=== PATIENT | female | born 1990 | race American Indian/Alaskan Native ===

== ENCOUNTER 2018-11-18 14:36 | Emergency (ER) | payer MEDICAID, OTHER ==
--- NOTE | 2018-11-18 14:46 | Emergency Department Report ---
Blank Doc - Documentation Documentation: This is a 28-year-old sore throat and cough with body aches. Agrees to fever and chills. PAtient stated is . Denies any vaginal bleeding or abdominal pain. This initial assessment/diagnostic orders/clinical plan/treatment(s) is/are subject to change based on patient's health status, clinical progression and re- assessment by fellow clinical providers in the ED. Further treatment and workup at subsequent clinical providers discretion. Patient/guardians urged not to elope from the ED as their condition may be serious if not clinically assessed and managed. Initial orders include: 1- Patient sent to MAIN ED for further evaluation and treatment 2- strep swab 3- Tylenol
[2018-11-18] MEDS ORDERED: TYLENOL PO ONE (14:49)
--- NOTE | 2018-11-18 17:27 | Emergency Department Report ---
Minor Respiratory - HPI Chief Complaint: Sore Throat Stated Complaint: FLU LIKE SYM/THROAT PAIN Time Seen by Provider: 11/18/18 14:42 Duration: 1 week Pain Location: Throat Severity: moderate Minor Respiratory: Yes Rhinorrhea, Yes Sore Throat, Yes Able to Tolerate Fluids, Yes Cough, Yes Sick Contacts (nephew), Yes Fever, No Ear Pain, No Hemoptysis, No Chest Pain, No Shortness of Breath Other History: This is a 28 y.o. female that presents with flu-like symptoms x 1 week. Patient reports a positive home test. She is currently taking OTC cold and flu medication. Reports sore throat, myalgia, and cough. Denies chest pain, shortness of breath, nausea, vomiting, diarrhea, abdominal pain, vaginal bleeding, or back pain. ED Review of Systems ROS: Stated complaint: FLU LIKE SYM/THROAT PAIN Other details as noted in HPI Constitutional: chills, fever ENT: throat pain, congestion. denies: ear pain, dental pain, hearing loss, epistaxis Respiratory: cough. denies: shortness of breath, wheezing Cardiovascular: denies: chest pain, palpitations Gastrointestinal: denies: abdominal pain, nausea, diarrhea Musculoskeletal: myalgia. denies: back pain, joint swelling, arthralgia Skin: denies: rash, lesions Neurological: denies: headache, weakness, paresthesias Psychiatric: denies: anxiety, depression ED Past Medical Hx - Past Medical History Hx Asthma: Yes - Surgical History Additional Surgical History: hernia repair - Social History Smoking Status: Never Smoker Substance Use Type: None - Medications Home Medications: Home Medications Medication Instructions Recorded Confirmed Last Taken Type HYDROcodone/APAP 10-325 [[place] 1 each PO Q6HR PRN #20 tablet 03/18/14 Unknown Rx 10/325] Ibuprofen [Motrin] 600 mg PO Q8H PRN #60 tablet 08/08/15 Unknown Rx Sulfamethoxazole/Trimethoprim 1 each PO BID #14 tablet 08/08/15 Unknown Rx [Bactrim DS TAB] traMADol [Ultram] 50 mg PO Q6HR PRN #14 tablet 08/08/15 Unknown Rx Amoxicillin 500 mg PO BID #14 capsule 11/18/18 Unknown Rx Fluticasone [Flonase] 1 spray NS QDAY #1 bottle 11/18/18 Unknown Rx Minor Respiratory Exam - Exam General: Vital signs noted. No distress. Alert and acting appropriately. HEENT: Yes Pharyngeal Erythema (posterior pharynx), Yes Moist Mucous Membranes, Yes Rhinorrhea (turbinates mildly congested with clear discharge), No Pharyngeal Exudates, No Conjuctival Injection, No Frontal Tenderness, No Maxillary Tenderness Ear: Neither TM Bulge, Neither TM Erythema, Neither EAC Pain, Neither EAC Discharge Neck: Yes Supple, No Adenopathy Lungs: Yes Good Air Exchange, Yes Cough, No Wheezes, No Ronchi, No Stridor, No Labored Respirations, No Retractions, No Use of Accessory Muscles, No Other Abnormal Lung Sounds Heart: Yes Regular, No Murmur Abdomen: Yes Normal Bowel Sounds, No Tenderness, No Peritoneal Signs Skin: No Rash, No Edema Neurologic: Alert and oriented, no deficits. Musculoskeletal: Unremarkable. ED Course Vital Signs 11/18/18 11/18/18 14:37 14:44 Temperature 100.7 F H Pulse Rate 116 H 109 H Respiratory 18 20 Rate Blood Pressure 116/72 Blood Pressure 116/72 [Left] O2 Sat by Pulse 97 95 Oximetry Vital Signs 11/18/18 11/18/18 11/18/18 14:37 14:44 17:34 Temperature 100.7 F H 99.0 F Pulse Rate 116 H 109 H 92 H Respiratory 18 20 16 Rate Blood Pressure 116/72 Blood Pressure 116/72 105/67 [Left] O2 Sat by Pulse 97 95 96 Oximetry ED Medical Decision Making - Lab Data Lab Results 11/18/18 Range/Units Unknown Group A Strep Rapid Negative (Negative) - Medical Decision Making 28 y.o. female that presents with flu-like symptoms. Patient is but denies abdominal pain, vaginal bleeding, or vaginal discharge. Patient examined by me and stable. No distress noted. Temperature and heart rate elevated. Given analgesics while in ER. Blood pressure and heart rated normal on reevaluation. Educated on care for bronchitis. Start flonase and amoxicillin. Instructed to stop taking cold and flu medication during . She is instructed to take Tylenol for aches and pains, to drink a lot of liquids to stay home and rest. She was given a note to return to work in 3 days. Follow up with Primary Care Provider or [facility] in 2-3 days. She will return to the emergency room if she does not get better as discussed. Critical care attestation.: If time is entered above; I have spent that time in minutes in the direct care of this critically ill patient, excluding procedure time. ED Disposition Clinical Impression: Sore throat, Bronchitis Disposition: DC- TO HOME OR SELFCARE Is pt being admited?: No Does the pt Need Aspirin: No Condition: Stable Instructions: Acute Bronchitis (ED), Chronic Bronchitis (ED) Additional Instructions: Symptoms are most likely coming from your infection. She is to take tylenol every 6 hours for pain and temperature control. You may not feel like eating which is to be expected. Try eating a bland diet as tolerated. Wash hands frequently. F/U with Primary Care Provider. Return to ER if fever, SOB, or difficulty breathing after 48 hours of supportive care. Prescriptions: Amoxicillin 500 mg PO BID #14 capsule Fluticasone [Flonase] 1 spray NS QDAY #1 bottle Referrals: [facility]OR[facility] ABDOUL [Primary Care Provider] - 3-5 Days [facility] [Outside] - 3-5 Days [facility] [Provider Group] - 3-5 Days [facility] [Provider Group] - 3-5 Days Forms: Work/School Release Form(ED) Time of Disposition: 17:30
[2018-11-18 17:35] VITALS: BP 105/67
== END 2018-11-18 17:38 | disposition home or self-care (01) ==
LOC: ED 14:36
DX: O99.519 Diseases of the respiratory system complicating pregnancy, unspecified trimester (principal); J40 Bronchitis, not specified as acute or chronic; Z3A.00 Weeks of gestation of pregnancy not specified
CPT/HCPCS: 87116; 87430

== ENCOUNTER 2018-12-04 00:31 | Emergency (ER) | payer MEDICAID, OTHER ==
[2018-12-04 01:04] VITALS: BP 123/82
[2018-12-04 01:44] LABS: Basophils % (Auto) 0.4 % (0.0-1.8); Eosinophils # (Auto) 0.1 K/mm3 (0.0-0.4); Eosinophils % (Auto) 0.8 % (0.0-4.3); Hemoglobin 11.9 gm/dl (10.1-14.3); Lymphocytes # (Auto) 1.7 K/mm3 (1.2-5.4); Lymphocytes % (Auto) 23.5 % (13.4-35.0); Mean Corpuscular HGB Conc 33 % (30-34); Mean Corpuscular Volume 83 fl (79-97); Monocytes # (Auto) 0.4 K/mm3 (0.0-0.8); Monocytes % (Auto) 5.4 % (0.0-7.3); Platelet Count 377 K/mm3 (140-440); Red Blood Count 4.37 M/mm3 (3.65-5.03); Red Cell Distribution Width 14.8 % (13.2-15.2)
[2018-12-04 01:55] LABS: HCG Qualitative,Urine Positive (Negative)
[2018-12-04 01:58] LABS: Bilirubin,Urine NEG (Negative); Blood,Urine NEG (Negative); Color,Urine Yellow (Yellow); Mucus,Urine FEW /HPF; Protein,Urine <15 mg/dL mg/dL (Negative)
[2018-12-04 02:08] LABS: Alanine Aminotransferase 21 units/L (7-56); Albumin 4.4 g/dL (3.9-5); BUN/Creatinine Ratio 17; Blood Urea Nitrogen 10 mg/dL (7-17); Calcium 9.6 mg/dL (8.4-10.2); Hemolysis Index 0
[2018-12-04] MEDS ORDERED: XYLOCAINE 1% MPF 5 mL INFILTRATI ONE (04:08)
[2018-12-04] MEDS ORDERED: XYLOCAINE 1% MPF 5 mL ONE (04:11)
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
== END 2018-12-04 06:59 | disposition home or self-care (01) ==
LOC: ED 00:31
DX: O20.0 Threatened abortion (principal); O9A.211 Injury, poisoning and certain other consequences of external causes complicating pregnancy, first trimester; S61.306A Unspecified open wound of right little finger with damage to nail, initial encounter; O99.511 Diseases of the respiratory system complicating pregnancy, first trimester; J45.909 Unspecified asthma, uncomplicated; O99.331 Smoking (tobacco) complicating pregnancy, first trimester; F17.200 Nicotine dependence, unspecified, uncomplicated; Z3A.09 9 weeks gestation of pregnancy; Y04.8XXA Assault by other bodily force, initial encounter; Y93.89 Activity, other specified; Y92.009 Unspecified place in unspecified non-institutional (private) residence as the place of occurrence of the external cause; Y99.8 Other external cause status
CPT/HCPCS: 36415; 76801; 80053; 81001; 81025; 84702; 84703; 85025

== ENCOUNTER 2018-12-21 22:36 | Emergency (ER) | payer MEDICAID, OTHER | END 2018-12-22 04:45 | LOC: ED 22:36 | DX: O26.891 Other specified pregnancy related conditions, first trimester (principal); Z53.21 Procedure and treatment not carried out due to patient leaving prior to being seen by health care provider ==

== ENCOUNTER 2018-12-22 10:01 | Emergency (ER) | payer MEDICAID ==
[2018-12-22 10:20] VITALS: BP 117/74
[2018-12-22 10:36] LABS: Hematocrit 35.4 % (30.3-42.9); Hemoglobin 11.7 gm/dl (10.1-14.3); Mean Corpuscular HGB Conc 33 % (30-34); Mean Corpuscular Volume 83 fl (79-97); Platelet Count 274 K/mm3 (140-440); Red Blood Count 4.26 M/mm3 (3.65-5.03)
--- NOTE | 2018-12-22 10:59 | Emergency Department Report ---
ED Abdominal Pain HPI - General Chief Complaint: Sore Throat Stated Complaint: 12WKS /BLEEDING/ABD PAIN Time Seen by Provider: 12/22/18 10:45 Source: patient Mode of arrival: Ambulatory Limitations: No Limitations - History of Present Illness Initial Comments: 28 YO WITH VAG BLEEDING IN PREG HERE ONCE PRIOR FOR THIS HAS ALSO SEEN OB X 1 G1 VAG BLEED WITH CRAMPS LMP 09/24/18 [facility] ASTHMA RX PRN ALBUTEROL -: Sudden, days(s) Location: diffuse Severity scale (0 -10): 4 Quality: cramping Consistency: intermittent - Related Data Previous Rx's Medication Instructions Recorded Last Taken Type traMADol [Ultram] 50 mg PO Q6HR PRN #12 tablet 12/22/18 Unknown Rx Allergies Allergy/AdvReac Type Severity Reaction Status Date / Time No Known Allergies Allergy Verified 12/22/18 15:12 ED Review of Systems ROS: Stated complaint: 12WKS /BLEEDING/ABD PAIN Other details as noted in HPI Comment: All other systems reviewed and negative Genitourinary: as per HPI ED Past Medical Hx - Past Medical History Hx Asthma: Yes - Surgical History Additional Surgical History: hernia repair - Family History Family history: no significant - Social History Smoking Status: Never Smoker Substance Use Type: None - Medications Home Medications: Home Medications Medication Instructions Recorded Confirmed Last Taken Type traMADol [Ultram] 50 mg PO Q6HR PRN #12 tablet 12/22/18 Unknown Rx ED Physical Exam - General Limitations: No Limitations General appearance: alert - Head Head exam: Present: atraumatic - Eye Eye exam: Present: normal appearance - ENT ENT exam: Present: normal exam, mucous membranes moist - Neck Neck exam: Present: normal inspection - Respiratory Respiratory exam: Present: normal lung sounds bilaterally - Cardiovascular Cardiovascular Exam: Present: regular rate - GI/Abdominal GI/Abdominal exam: Present: soft, normal bowel sounds - Rectal Rectal exam: Present: deferred - Extremities Exam Extremities exam: Present: normal inspection - Back Exam Back exam: Present: normal inspection, full ROM - Neurological Exam Neurological exam: Present: alert, oriented X3 - Psychiatric Psychiatric exam: Present: normal affect, normal mood ED Course Vital Signs 12/22/18 12/22/18 12/22/18 10:19 12:38 12:41 Temperature 98.3 F Pulse Rate 72 Respiratory 16 17 17 Rate Blood Pressure 117/74 O2 Sat by Pulse 100 Oximetry 12/22/18 13:00 Temperature Pulse Rate 67 Respiratory 18 Rate Blood Pressure O2 Sat by Pulse 97 Oximetry ED Medical Decision Making - Lab Data Result diagrams: 12/22/18 10:22 - Radiology Data Radiology results: report reviewed, image reviewed - Medical Decision Making Lab Results 12/22/18 12/22/18 12/22/18 Range/Units 10:22 10:22 10:22 WBC 5.7 (4.5-11.0) K/mm3 RBC 4.26 (3.65-5.03) M/mm3 Hgb 11.7 (10.1-14.3) gm/dl Hct 35.4 (30.3-42.9) % MCV 83 (79-97) fl MCH 27 L (28-32) pg MCHC 33 (30-34) % RDW 15.0 (13.2-15.2) % Plt Count 274 (140-440) K/mm3 HCG, Quant 3570 H (0-4) mIU/mL Blood Type B POSITIVE Vital Signs 12/22/18 10:19 Temperature 98.3 F Pulse Rate 72 Respiratory 16 Rate Blood Pressure 117/74 O2 Sat by Pulse 100 Oximetry RH POS US NOTED MEDICATED FOR PAIN DC HOME WITH FOLLOW UP WITHIN 24 TO OBGYN Critical care attestation.: If time is entered above; I have spent that time in minutes in the direct care of this critically ill patient, excluding procedure time. ED Disposition Clinical Impression: Threatened , Spontaneous Disposition: DC-01 TO HOME OR SELFCARE Is pt being admited?: No Does the pt Need Aspirin: No Condition: Stable Instructions: Spontaneous Miscarriage (ED), Threatened Miscarriage (ED) Additional Instructions: FOLLOW UP WITH OB WITHIN 24 HOURS THEY CAN CALL HERE AND GET ULTRASOUND REPORT PELVIC REST MOTRIN OR TYLENOL FOR PAIN Prescriptions: traMADol [Ultram] 50 mg PO Q6HR PRN #12 tablet PRN Reason: Pain Referrals: ABBEY WILEY MD [Primary Care Provider] - 3-5 Days CARMEN BAZZI MD [Staff Physician] - 3-5 Days Time of Disposition: 12:30
--- NOTE | 2018-12-22 12:22 | Ultrasound Report ---
ULTRASOUND PELVIC COMPLETE ULTRASOUND TRANSVAGINAL HISTORY: Vaginal bleeding during . COMPARISON: 12/04/18. TECHNIQUE: Transabdominal and transvaginal ultrasound with color doppler interrogation. FINDINGS: Uterus: 10.6 6.0 x 6.6 cm. The uterus is anteverted. The cervix is unremarkable. Endometrium: An intrauterine gestational sac is identified containing a small pole. Avenal-rump length measures 20.2 mm which correlates with an 8 week 4 day . No heart rate could be detected. Right ovary: 4.4 x 1.7 x 2.5 cm. Left ovary: 2.6 x 1.4 x 1.9 cm. No pelvic fluid or mass is identified. Normal color doppler interrogation. IMPRESSION: Findings remain consistent with demise. See above. Normal ovaries.
[2018-12-22] MEDS ORDERED: NORCO 5/325 PO ONE (12:31)
[2018-12-22] MEDS ORDERED: TYLENOL PO ONE (12:38)
[2018-12-22] MEDS ORDERED: TYLENOL ONE (12:39)
== END 2018-12-22 12:59 | disposition home or self-care (01) ==
LOC: ED 10:01
DX: O20.0 Threatened abortion (principal); J45.909 Unspecified asthma, uncomplicated; Z3A.12 12 weeks gestation of pregnancy
CPT/HCPCS: 36415; 76801; 84702; 85027; 86900; 86901

== ENCOUNTER 2018-12-22 15:09 | Emergency (ER) | payer MEDICAID ==
[2018-12-22 15:14] VITALS: BP 124/85
--- NOTE | 2018-12-22 15:54 | Emergency Department Report ---
ED Recheck HPI - General Chief Complaint: Vaginal Bleeding Stated Complaint: STOMACH PAIN/12WKS Time Seen by Provider: 12/22/18 15:16 Source: patient Mode of arrival: Wheelchair Limitations: No Limitations - History of Present Illness Initial Comments: 28 YO WHO WAS JUST DC WENT HOME, GOT UPSET, COMPLAINED OF PAIN AND SHE COMES IN WITH HER FAMILY NOW. SHE DID NOT TELL THE FAMILY SHE WAS HAVING MISCARRIAGE. SHE TOLD THEM THE BABY WAS OK. PT EMOTIONALLY TRAUMATIZED. SHE IS 28 AND THIS IS HER FIRST . COMES NOW WITH PAIN. SHE DID NOT HAVE A RIDE EARLIER SO WE DID NOT MEDICATED HER. SHE DROVE TO AND FROM THE HOSPITAL Complaint: other - Related Data Previous Rx's Medication Instructions Recorded Last Taken Type traMADol [Ultram] 50 mg PO Q6HR PRN #12 tablet 12/22/18 Unknown Rx Allergies Allergy/AdvReac Type Severity Reaction Status Date / Time No Known Allergies Allergy Verified 12/22/18 15:12 ED Review of Systems ROS: Stated complaint: STOMACH PAIN/12WKS Other details as noted in HPI Comment: All other systems reviewed and negative ED Past Medical Hx - Past Medical History Hx Asthma: Yes - Surgical History Additional Surgical History: hernia repair - Social History Smoking Status: Never Smoker Substance Use Type: None - Medications Home Medications: Home Medications Medication Instructions Recorded Confirmed Last Taken Type traMADol [Ultram] 50 mg PO Q6HR PRN #12 tablet 12/22/18 Unknown Rx ED Physical Exam - General Limitations: No Limitations General appearance: alert - Head Head exam: Present: atraumatic - Eye Eye exam: Present: PERRL - ENT ENT exam: Present: mucous membranes moist - Cardiovascular Cardiovascular Exam: Present: regular rate, normal rhythm (HR90 CRYING) - GI/Abdominal GI/Abdominal exam: Present: soft - Rectal Rectal exam: Present: deferred - Extremities Exam Extremities exam: Present: normal inspection - Back Exam Back exam: Present: normal inspection - Neurological Exam Neurological exam: Present: alert, oriented X3 - Psychiatric Psychiatric exam: Present: anxious ED Course Vital Signs 12/22/18 15:12 Temperature 98.5 F Pulse Rate 103 H Respiratory 18 Rate Blood Pressure 124/85 O2 Sat by Pulse 100 Oximetry ED Recheck MDM - Core Measures Measure Exclusions: not indicated - Medical Decision Making RH POS HCG TRENDING DOWN VAG BLEEDING WITH CLOTS US NOTED WITH DEMISE EARLIER TODAY WILL FOLLOW UP WITH JLUIS. DISCUSSED WITH FAMILY SO THAT THEY CAN HELP HER WITH THIS. Vital Signs (72 hours) 12/22/18 15:12 Temperature 98.5 F Pulse Rate 103 H Respiratory 18 Rate Blood Pressure 124/85 O2 Sat by Pulse 100 Oximetry Critical care attestation.: If time is entered above; I have spent that time in minutes in the direct care of this critically ill patient, excluding procedure time. ED Disposition Clinical Impression: Threatened , Spontaneous Disposition: - TO HOME OR SELFCARE Is pt being admited?: No Does the pt Need Aspirin: No Condition: Stable Instructions: Spontaneous Miscarriage (ED) Additional Instructions: FOLLOW UP WE DISCUSSED GET YOUR RX FILLED AND TAKE THAT AND MOTRIN/TYLENOL FOR PAIN BLOOD TYPE POSITIVE Referrals: CARMEN BAZZI MD [Staff Physician] - 3-5 Days Time of Disposition: 15:57
[2018-12-22] MEDS ORDERED: DILAUDID IM ONE (15:55)
[2018-12-22] MEDS ORDERED: ZOFRAN ODT PO ONE (15:55)
[2018-12-22] MEDS ORDERED: ATIVAN IM ONE (15:56)
== END 2018-12-22 16:59 | disposition home or self-care (01) ==
LOC: ED 15:09
DX: O20.0 Threatened abortion (principal); Z3A.12 12 weeks gestation of pregnancy; O99.511 Diseases of the respiratory system complicating pregnancy, first trimester
CPT/HCPCS: 96372; 99282; J1170; J2060; Q0162

== ENCOUNTER 2019-09-10 08:00 | Emergency (ER) | payer SELFPAY ==
[2019-09-10] MEDS ORDERED: ACETAMINOPHEN 500 MG TAB PO ONE (08:24)
[2019-09-10] MEDS ORDERED: IPRATROPIUM 0.02% NEBU 2.5 ML IH ONE (08:24)
[2019-09-10] MEDS ORDERED: ALBUTEROL 2.5 MG/3 ML NEBU IH ONE (08:24)
--- NOTE | 2019-09-10 09:25 | XRay Report ---
. CHEST 1 VIEW INDICATION: SOB. COMPARISON: None. FINDINGS: Support devices: None. Heart: Normal. Lungs/Pleura: No acute pulmonary or pleural findings. IMPRESSION: 1. No acute findings. Signer Name: Gil Singh MD Signed: 09/10/2019 9:21 AM Workstation Name: [id number]
[2019-09-10] MEDS ORDERED: PYRIDOXINE 50 MG TAB PO STA (10:39)
[2019-09-10] MEDS ORDERED: SODIUM CHLORIDE 0.9% 1000 ML 1,000 ML IV ONE (10:39)
[2019-09-10] MEDS ORDERED: diphenhydrAMINE 50 MG/ML VIAL IV STA (10:39)
[2019-09-10] MEDS ORDERED: METOCLOPRAMIDE 10 MG/2 ML INJ IV STA (10:39)
[2019-09-10 10:54] LABS: Bilirubin,Urine NEG (Negative); Blood,Urine NEG (Negative); Color,Urine Yellow (Yellow); Mucus,Urine FEW /HPF; Protein,Urine <15 mg/dL mg/dL (Negative); Urobilinogen,Urine < 2.0 mg/dL (<2.0)
[2019-09-10 11:56] LABS: Hematocrit 32.6 % (30.3-42.9); Hemoglobin 10.9 gm/dl (10.1-14.3); Mean Corpuscular Volume 84 fl (79-97); Red Blood Count 3.89 M/mm3 (3.65-5.03)
[2019-09-10 11:57] LABS: Mean Corpuscular HGB Conc 33 % (30-34); Platelet Count 239 K/mm3 (140-440); Red Cell Distribution Width 14.9 % (13.2-15.2)
[2019-09-10 12:19] LABS: Alanine Aminotransferase 14 units/L (7-56); Albumin 4.1 g/dL (3.9-5); BUN/Creatinine Ratio 15; Blood Urea Nitrogen 6 mg/dL (7-17); Hemolysis Index 4
[2019-09-10 12:39] LABS: Basophils % (Manual) 0 % (0.0-1.8); Eosinophils % (Manual) 0 % (0.0-4.3); Total Cells Counted 100
[2019-09-10 12:40] LABS: Platelet Estimate Consistent w Auto; RBC Morphology Normal
[2019-09-10 13:40] VITALS: BP 116/69
--- NOTE | 2019-09-10 14:56 | Emergency Department Report ---
- General Chief Complaint: Adult Asthma Stated Complaint: SOB Time Seen by Provider: 09/10/19 10:33 Source: patient, family, EMS Mode of arrival: Stretcher Limitations: No Limitations - Related Data Previous Rx's Medication Instructions Recorded Last Taken Type traMADoL [Ultram] 50 mg PO Q6HR PRN #12 tablet 12/22/18 Unknown Rx Allergies Allergy/AdvReac Type Severity Reaction Status Date / Time No Known Allergies Allergy Verified 12/22/18 15:12 ED Review of Systems ROS: Stated complaint: SOB Other details as noted in HPI ED Past Medical Hx - Past Medical History Hx Asthma: Yes - Surgical History Additional Surgical History: hernia repair - Social History Smoking Status: Current Every Day Smoker Substance Use Type: None - Medications Home Medications: Home Medications Medication Instructions Recorded Confirmed Last Taken Type traMADoL [Ultram] 50 mg PO Q6HR PRN #12 tablet 12/22/18 Unknown Rx ED Physical Exam - General Limitations: No Limitations ED Course Vital Signs 09/10/19 09/10/19 09/10/19 08:17 11:15 13:39 Temperature 100.1 F H 98.9 F 99.1 F Pulse Rate 105 H 84 88 Respiratory 19 22 20 Rate Blood Pressure 129/78 Blood Pressure 109/52 116/69 [Left] O2 Sat by Pulse 97 98 100 Oximetry ED Medical Decision Making - Lab Data Result diagrams: 09/10/19 11:44 09/10/19 11:44 Critical care attestation.: If time is entered above; I have spent that time in minutes in the direct care of this critically ill patient, excluding procedure time. ED Disposition Disposition: DC-01 TO HOME OR SELFCARE Condition: Stable Instructions: Reactive Airways Disease (ED), Cold Symptoms (ED), Acute Cough (ED) Additional Instructions: Chest x-ray was normally influenza swab was negative. Symptoms are consistent with a viral upper respiratory infection and hyperactive airways. Follow with her CHEMISTRY PROFESSOR for definitive management at this present time no treatment involving Tamiflu or antibiotics is required. He may benefit from steroids and antihistamines of this needs to be prescribed by your OB Referrals: [facility] [Provider Group] - 3-5 Days
== END 2019-09-10 14:52 | disposition home or self-care (01) ==
LOC: ED 08:00
DX: R06.02 Shortness of breath (principal); J45.909 Unspecified asthma, uncomplicated; F17.200 Nicotine dependence, unspecified, uncomplicated; Z79.899 Other long term (current) drug therapy
CPT/HCPCS: 36415; 71045; 80053; 81001; 85007; 85025; 87400; 96374; 96375; 99284; J1200; J2765; J7030

== ENCOUNTER 2019-12-18 02:59 | Inpatient (IN) | payer MEDICAID ==
[~2019-12-18 02:59] MED LIST: BUTORPHANOL 2 MG/1 ML INJ IV ONE; LACTATED RINGERS 1,000 ML IV ONE; TERBUTALINE 1 MG/1 ML INJ SUB-Q ONE; TERBUTALINE 1 MG/1 ML INJ SUB-Q SCH
[2019-12-18 03:05] LABS: Bacteria,Urine 1+ /HPF (Negative); Bilirubin,Urine NEG (Negative); Blood,Urine NEG (Negative); Color,Urine Amber (Yellow); Mucus,Urine 2+ /HPF
[2019-12-18] MEDS ORDERED: ALBUTEROL 2.5 MG/3 ML NEBU IH ONE (03:06)
[2019-12-18 03:13] LABS: Amphetamine Screen,Urine PRESUMPTIVE NEGATIVE; Benzodiazepines Screen,Urine PRESUMPTIVE NEGATIVE; Cocaine Screen,Urine PRESUMPTIVE NEGATIVE; Methadone Screen,Urine PRESUMPTIVE NEGATIVE; Opiate Screen,Urine PRESUMPTIVE NEGATIVE
[2019-12-18] MEDS ORDERED: methylPREDNISolone Sod Succinate 125 MG/2 ML INJ IV ONE (03:31)
[2019-12-18] MEDS ORDERED: SODIUM CHLORIDE 0.9% 1000 ML 1,000 ML IV ONE (03:31)
[2019-12-18] MEDS ORDERED: ACETAMINOPHEN 500 MG TAB PO ONE ×2 (03:31→07:31)
[2019-12-18 03:35] LABS: Cannabinoid Screen,Urine PRESUMPTIVE POSITIVE
--- NOTE | 2019-12-18 04:06 | XRay Report ---
CHEST 1 VIEW INDICATION / CLINICAL INFORMATION: cough. COMPARISON: 09/10/2019 FINDINGS: SUPPORT DEVICES: None. HEART / MEDIASTINUM: No significant abnormality. LUNGS / PLEURA: Rounded airspace opacity is identified in the left midlung. The right lung is clear. No pneumothorax. ADDITIONAL FINDINGS: No significant additional findings. IMPRESSION: 1. Airspace process in the left lung most likely pneumonia. Signer Name: Timothy Salazar MD Signed: 12/18/2019 4:01 AM Workstation Name: [id number] [id number]
[2019-12-18] MEDS ORDERED: LIDOCAINE-MPF (1%) 10 MG/1 ML VIAL 5 ML INFILTRATI ONE (04:16)
--- NOTE | 2019-12-18 04:59 | Emergency Department Report ---
<BRITTJOAN - Last Filed: 12/18/19 06:51> ED Shortness of Breath HPI - General Chief Complaint: Dyspnea/Respdistress Stated Complaint: WHEEZING,DELANEY,33 WEEKS PREG Source: patient Mode of arrival: Wheelchair Limitations: No Limitations - History of Present Illness Initial Comments: Patient is a A0 29-year-old -[place] female who is approximately 33 weeks gestation and who has a history of asthma who presented to the ED with complaint of acute onset persistent nasal and sinus congestion, persistent dry cough with wheezing and shortness of breath, fever and chills and pleuritic chest wall pain for the last 2 days. Patient states that she ran out of her albuterol inhaler about 2 days ago and that since then her cough, pleuritic chest wall pain, shortness of breath and generalized weakness has worsened. Patient denies dizziness, syncope, chest pain, abdominal pain, vaginal bleeding, vaginal discharge, dysuria, urinary frequency and urgency, sore throat, nasal and sinus congestion, headache or change in vision or syncope and seizures. Patient was initially evaluated in the L&D and treated for pelvic cramps. Labs were drawn and reviewed, and was unremarkable. Patient was transferred to the ED for further evaluation of her shortness of breath and cough. MD Complaint: shortness of breath, cough, chest pain (pleuritic chest pain with cough or inspiration), pain with inspiration, "asthma attack", anxiety -: Sudden, days(s) (2) Severity: moderate Pain Scale: 6 Quality: sharp, other (pleuritic) Consistency: constant Improves With: oxygen, bronchodilators Worsens With: coughing, inspiration Known History Of: asthma, other (33 weeks gestation) Context: recent URI, other (33 weeks gestation) Associated Symptoms: denies other symptoms, chest pain (pleuritic), pain with inspiration, fever, cough Treatments Prior to Arrival: none - Related Data Home Oxygen Therapy: No Home Medications Medication Instructions Recorded Confirmed Last Taken ALBUTEROL NEB's [Proventil 0.083% 12/18/19 Unknown NEBS] Iron 12/18/19 Unknown Valtrex 12/18/19 Unknown Allergies Allergy/AdvReac Type Severity Reaction Status Date / Time No Known Allergies Allergy Verified 12/22/18 15:12 ED Review of Systems Constitutional: chills, fever, malaise, weakness Eyes: denies: eye pain, eye discharge, vision change ENT: congestion. denies: ear pain, throat pain Respiratory: cough, shortness of breath, wheezing Cardiovascular: chest pain (pleuritic). denies: palpitations Endocrine: no symptoms reported Gastrointestinal: denies: abdominal pain, nausea, vomiting, diarrhea Genitourinary: denies: urgency, dysuria, frequency, discharge, abnormal menses, dyspareunia Musculoskeletal: denies: back pain, joint swelling, arthralgia Skin: denies: rash, lesions Neurological: denies: headache, weakness, paresthesias Psychiatric: anxiety. denies: depression Hematological/Lymphatic: denies: easy bleeding, easy bruising ED Past Medical Hx - Past Medical History Hx Hypertension: No Hx Diabetes: No Hx Deep Vein Thrombosis: No Hx Renal Disease: No Hx Sickle Cell Disease: No Hx Seizures: No Hx Asthma: Yes Hx HIV: No - Surgical History Additional Surgical History: hernia repair - Social History Smoking Status: Never Smoker Substance Use Type: Marijuana - Medications Home Medications: Home Medications Medication Instructions Recorded Confirmed Last Taken Type ALBUTEROL NEB's [Proventil 0.083% 12/18/19 Unknown History NEBS] Iron 12/18/19 Unknown History Valtrex 12/18/19 Unknown History ED Physical Exam - General Limitations: No Limitations General appearance: alert, in no apparent distress, anxious - Head Head exam: Present: atraumatic, normocephalic, normal inspection - Eye Eye exam: Present: normal appearance, PERRL, EOMI Pupils: Present: normal accommodation - ENT ENT exam: Present: mucous membranes moist, TM's normal bilaterally, normal external ear exam, other (Grossly congested nasal passages) - Neck Neck exam: Present: normal inspection, full ROM. Absent: tenderness, lymphadenopathy - Respiratory Respiratory exam: Present: normal lung sounds bilaterally, wheezes (Moderate coarse wheezes diffusely), rales (Moderate inspiratory rales in left mid lobe and left lower lobe). Absent: respiratory distress, chest wall tenderness, accessory muscle use - Cardiovascular Cardiovascular Exam: Present: normal rhythm, tachycardia, normal heart sounds. Absent: systolic murmur, diastolic murmur, rubs, gallop - GI/Abdominal GI/Abdominal exam: Present: soft, normal bowel sounds, other (Gravid abdomen). Absent: tenderness, guarding, rebound, hyperactive bowel sounds, hypoactive bowel sounds - Extremities Exam Extremities exam: Present: normal inspection, full ROM, normal capillary refill - Back Exam Back exam: Present: normal inspection, full ROM. Absent: tenderness, CVA tenderness (R), CVA tenderness (L), muscle spasm, paraspinal tenderness, vertebral tenderness - Neurological Exam Neurological exam: Present: alert, oriented X3, CN II-XII intact, normal gait, reflexes normal - Psychiatric Psychiatric exam: Present: normal affect, anxious - Skin Skin exam: Present: warm, dry, intact, normal color. Absent: rash ED Course - Reevaluation(s) Reevaluation #1: 12/18/19 06:40 I paged and discussed the patient's case with Dr. Trammell the EMBRYOLOGY PROFESSOR who advised that the patient be admitted by medicine group, the hospitalist and have the the [employer] as consult. Dr. Trammell agreed to consult Dr. Salinas the hospitalist director for further direction on the patient's admission. Reevaluation #2: 12/18/19 06:31 I paged and discussed the patient's case including history, physical exam findings, vital signs, lab test results and imaging report with the [employer] physician supervisor special education Dr. Neri who advised that the patient be admitted by the hospitalist physician and have the [employer] consulted for any obstetrics complications. 12/18/19 07:00: Patient discussed the patient's case with Dr. Salinas the hospitalist physician director who upon discussion of the patient's case with the hospital EMBRYOLOGY PROFESSOR Dr. Trammell advised that the patient be admitted by the [employer] physician supervisor special education Dr. Neri and medicine shall consult on the patient's underlying medical condition. Dr. Salinas advised that the patient does not need to be admitted in mother baby unit but can be on med/surge floor. Reevaluation #3: 12/18/19 06:52 I also paged and discussed the patient's case with Dr. Arce the infectious disease physician on-call who agreed to consult on the patient upon patient's admission to the hospital. Reevaluation #4: 12/18/19 07:20 I discussed the patient's case again with Dr. Neri the [employer] physician supervisor special education who agreed to admit the patient to the medical floor and advised that the patient be bridged to the MedSurg floor and her medicine group as consult to treat the patient's pneumonia. Patient was thereafter bridged to the floor pro Neri. ED Medical Decision Making - Lab Data Result diagrams: 12/18/19 05:22 12/18/19 05:22 - Radiology Data Radiology results: report reviewed, image reviewed Findings [facility] [address] [place] [address] XRay Report Signed Patient: TYRELL ANGEL MR#: [id number] : 1990 Acct:[id number] Age/Sex: 29 / F ADM Date: 12/18/19 Loc: ED Attending Dr: Ordering Physician: SEBASTIAN SERRATO Date of Service: 12/18/19 Procedure(s): XR chest 1V ap Accession Number(s): [id number] cc: SEBASTIAN SERRATO Fluoro Time In Minutes: CHEST 1 VIEW INDICATION / CLINICAL INFORMATION: cough. COMPARISON: 09/10/2019 FINDINGS: SUPPORT DEVICES: None. HEART / MEDIASTINUM: No significant abnormality. LUNGS / PLEURA: Rounded airspace opacity is identified in the left midlung. The right lung is clear. No pneumothorax. ADDITIONAL FINDINGS: No significant additional findings. IMPRESSION: 1. Airspace process in the left lung most likely pneumonia. Signer Name: Timothy Salazar MD Signed: 12/18/2019 4:01 AM Workstation Name: [id number] Transcribed By: AYSE Dictated By: Timothy Salazar MD Electronically Authenticated By: Timothy Salazar MD Signed Date/Time: 12/18/19400 DD/ 9 TD/TT: - Medical Decision Making This is a A0 29-year-old -[place]ian female who is approximately 33 weeks gestation and who has a history of asthma who presented to the ED with complaint of acute onset persistent nasal and sinus congestion, persistent dry cough with wheezing and shortness of breath, fever and chills and pleuritic chest wall pain for the last 2 days. Patient states that she ran out of her albuterol inhaler about 2 days ago and that since then her cough, pleuritic chest wall pain, shortness of breath and generalized weakness has worsened. Patient was initially evaluated in the L&D and treated for pelvic cramps. Urinalysis was evaluated and the results reviewed, which were nonactionable. Patient was transferred to the ED for further evaluation of her shortness of breath and cough. In the ED, patient is alert and oriented x3 and is not in any distress but febrile with a fever 100.1 F, tachycardic and with initial oxygen saturation is 97% on room air. Patient received albuterol 5 mg nebulizer in the ED x1 with Solu-Medrol, and also treated for pain with Tylenol. Chest x- ray showed a rounded airspace opacity is in the left midlung identified as likely pneumonia. Lab test results show acute leukocytosis of 22,500, acute hyponatremia of 132 mmol/L, mild acute hypokalemia of 3.4 mmol/L and acute hypochloremia of 95.8 mmol/L. CRP was 29.60 and AST was elevated to 42. Patient was treated in the ED with Rocephin 1 g IV x1, azithromycin 500 mg IV x1, also given Tylenol for fever. Other differential diagnoses were considered including asthma exacerbation, Covid-19 infection, influenza infection, and bact erial pneumonia. These findings were discussed with the ED attending physician Dr. Lindsay who advised the patient be admitted. The [employer] physician supervisor special education Dr. Neri was paged and she advised that the patient be admitted by the hospitalist physician and the [employer] be consulted for any [employer] complications. Upon further consultations with the director of the hospitalist group Dr. Salinas, the [facility] EMBRYOLOGY PROFESSOR Dr. Trammell, the patient was admitted to the MedSurge floor by Dr. Daron Dalton, the [employer] physician and had the hospitalist consult on the patient's underlying medical admission problem, pneumonia. - Differential Diagnosis Asthma exacerbations; Pneumonia; Hypoxia; Covid-19; Influenza ED Disposition Clinical Impression: Shortness of breath, Hypoxic episode, Sepsis due to pneumonia, Fever and chills Asthma with acute exacerbation in adult Qualifiers: Asthma severity: moderate Asthma persistence: persistent Qualified Code(s): J45.41 - Moderate persistent asthma with (acute) exacerbation Disposition: OP ADMIT IP TO THIS HOSP Is pt being admited?: Yes Does the pt Need Aspirin: No Condition: Stable Time of Disposition: 07:28 <ROCKY LINDSAY - Last Filed: 12/18/19 20:20> ED Review of Systems ROS: Stated complaint: WHEEZING,DELANEY,33 WEEKS PREG Other details as noted in HPI ED Course Vital Signs 12/18/19 12/18/19 12/18/19 00:27 00:29 00:31 Temperature Pulse Rate 115 H 103 H 114 H Respiratory Rate Blood Pressure 139/63 Blood Pressure [Left] O2 Sat by Pulse 95 94 Oximetry 12/18/19 12/18/19 12/18/19 00:32 00:36 00:37 Temperature Pulse Rate 116 H 111 H 110 H Respiratory Rate Blood Pressure Blood Pressure [Left] O2 Sat by Pulse 93 94 95 Oximetry 12/18/19 12/18/19 12/18/19 00:42 00:45 00:47 Temperature Pulse Rate 115 H 114 H 112 H Respiratory Rate Blood Pressure 129/67 Blood Pressure [Left] O2 Sat by Pulse 94 93 Oximetry 12/18/19 12/18/19 12/18/19 00:48 00:52 00:54 Temperature Pulse Rate 111 H 114 H 107 H Respiratory Rate Blood Pressure Blood Pressure [Left] O2 Sat by Pulse 94 95 94 Oximetry 12/18/19 12/18/19 12/18/19 00:57 01:00 01:02 Temperature 98.4 F Pulse Rate 109 H 111 H Respiratory 24 Rate Blood Pressure Blood Pressure [Left] O2 Sat by Pulse 94 95 95 Oximetry 12/18/19 12/18/19 12/18/19 01:07 01:12 01:51 Temperature Pulse Rate 114 H 112 H 116 H Respiratory Rate Blood Pressure Blood Pressure [Left] O2 Sat by Pulse 96 97 94 Oximetry 12/18/19 12/18/19 12/18/19 01:56 01:57 02:01 Temperature Pulse Rate 109 H 113 H 115 H Respiratory Rate Blood Pressure Blood Pressure [Left] O2 Sat by Pulse 97 94 98 Oximetry 12/18/19 12/18/19 12/18/19 02:03 02:06 02:09 Temperature Pulse Rate 117 H 115 H 109 H Respiratory Rate Blood Pressure Blood Pressure [Left] O2 Sat by Pulse 94 95 92 Oximetry 12/18/19 12/18/19 12/18/19 02:11 02:14 02:16 Temperature Pulse Rate 113 H 123 H 123 H Respiratory Rate Blood Pressure Blood Pressure [Left] O2 Sat by Pulse 95 94 96 Oximetry 12/18/19 12/18/19 12/18/19 02:21 02:26 02:31 Temperature 100.0 F H Pulse Rate 120 H 130 H 122 H Respiratory 24 Rate Blood Pressure Blood Pressure [Left] O2 Sat by Pulse 94 94 97 Oximetry 12/18/19 12/18/19 12/18/19 02:36 03:00 05:10 Temperature 100.1 F H 100.3 F H Pulse Rate 132 H 78 125 H Respiratory 20 20 Rate Blood Pressure 118/68 Blood Pressure 121/72 [Left] O2 Sat by Pulse 98 97 90 Oximetry 12/18/19 12/18/19 12/18/19 05:23 05:31 05:41 Temperature Pulse Rate 118 H 123 H 118 H Respiratory 15 25 H 25 H Rate Blood Pressure Blood Pressure [Left] O2 Sat by Pulse 96 Oximetry 12/18/19 12/18/19 12/18/19 05:51 06:00 06:11 Temperature Pulse Rate 122 H 117 H 115 H Respiratory 18 20 28 H Rate Blood Pressure 97/50 108/56 Blood Pressure [Left] O2 Sat by Pulse 98 96 94 Oximetry 12/18/19 12/18/19 12/18/19 06:21 06:32 06:41 Temperature Pulse Rate 113 H 119 H Respiratory 32 H 26 H Rate Blood Pressure 122/69 122/69 122/69 Blood Pressure [Left] O2 Sat by Pulse 98 95 97 Oximetry 12/18/19 12/18/19 12/18/19 06:51 07:01 07:11 Temperature Pulse Rate 126 H 110 H 111 H Respiratory 20 19 26 H Rate Blood Pressure 115/73 137/68 137/68 Blood Pressure [Left] O2 Sat by Pulse 97 100 99 Oximetry 12/18/19 12/18/19 12/18/19 07:21 07:30 07:41 Temperature Pulse Rate 114 H 108 H 106 H Respiratory 17 24 22 Rate Blood Pressure 119/82 116/72 116/72 Blood Pressure [Left] O2 Sat by Pulse 100 98 98 Oximetry 12/18/19 12/18/19 12/18/19 07:51 08:01 08:11 Temperature Pulse Rate 108 H 107 H 105 H Respiratory 30 H 28 H 30 H Rate Blood Pressure 95/31 127/62 127/62 Blood Pressure [Left] O2 Sat by Pulse 96 94 95 Oximetry 12/18/19 12/18/19 12/18/19 08:21 08:31 08:41 Temperature Pulse Rate 109 H 107 H 105 H Respiratory 31 H 29 H 29 H Rate Blood Pressure 107/81 86/36 86/36 Blood Pressure [Left] O2 Sat by Pulse 88 Oximetry 12/18/19 12/18/19 12/18/19 08:51 09:01 09:11 Temperature Pulse Rate 113 H 100 H 101 H Respiratory 20 28 H 28 H Rate Blood Pressure 130/40 120/49 120/49 Blood Pressure [Left] O2 Sat by Pulse 91 98 97 Oximetry 12/18/19 12/18/19 12/18/19 09:22 09:30 09:40 Temperature Pulse Rate 93 H 94 H 94 H Respiratory 27 H 22 24 Rate Blood Pressure 138/67 130/54 Blood Pressure [Left] O2 Sat by Pulse 98 99 99 Oximetry 12/18/19 12/18/19 12/18/19 09:50 10:00 10:10 Temperature Pulse Rate 90 96 H 94 H Respiratory 24 14 29 H Rate Blood Pressure 138/67 109/56 109/56 Blood Pressure [Left] O2 Sat by Pulse 98 99 Oximetry 12/18/19 12/18/19 12/18/19 10:20 10:30 10:40 Temperature Pulse Rate 94 H 95 H 101 H Respiratory 21 27 H 29 H Rate Blood Pressure 135/51 130/77 130/77 Blood Pressure [Left] O2 Sat by Pulse 100 97 99 Oximetry 12/18/19 12/18/19 12/18/19 10:50 11:00 11:10 Temperature Pulse Rate 87 100 H Respiratory 15 23 14 Rate Blood Pressure 116/71 116/71 91/59 Blood Pressure [Left] O2 Sat by Pulse 100 93 100 Oximetry 12/18/19 11:20 Temperature Pulse Rate Respiratory Rate Blood Pressure 101/68 Blood Pressure [Left] O2 Sat by Pulse 100 Oximetry - Reevaluation(s) Reevaluation #1: 12/18/19 06:00 patient found to have sepsis secondary to pneumonia. Dr Neri of ob to follow. monitoring recommended q shift Dr Trammell, EMBRYOLOGY PROFESSOR advises that patient be admitted to medical service Ob to follow will place on isolation. SEBASTIAN Sapp to fill out COVID PUI form ED Medical Decision Making - Lab Data Result diagrams: 12/18/19 05:22 12/18/19 05:22 Critical Care Time: Yes Critical care time in (mins) excluding proc time.: 60 Critical care attestation.: If time is entered above; I have spent that time in minutes in the direct care of this critically ill patient, excluding procedure time. ED Disposition Is pt being admited?: Yes Does the pt Need Aspirin: No
[2019-12-18] MEDS ORDERED: IPRATROPIUM/ALBUTEROL SULFATE 3 ML AMPUL.NEB IH ONE (05:13)
[2019-12-18] MEDS ORDERED: LACTATED RINGERS 1,000 ML IV ONE ×2 (05:14→05:19)
[2019-12-18 05:42] LABS: Hematocrit 29.9 % (30.3-42.9); Hemoglobin 9.9 gm/dl (10.1-14.3); Mean Corpuscular HGB Conc 33 % (30-34); Mean Corpuscular Volume 82 fl (79-97); Platelet Count 240 K/mm3 (140-440); Red Blood Count 3.64 M/mm3 (3.65-5.03); Red Cell Distribution Width 14.4 % (13.2-15.2)
[2019-12-18] MEDS ORDERED: methylPREDNISolone Sod Succinate 125 MG/2 ML INJ ONE (05:48)
[2019-12-18] MEDS ORDERED: ACETAMINOPHEN 500 MG TAB ONE (05:49)
[2019-12-18 05:59] LABS: Alanine Aminotransferase 44 units/L (7-56); Albumin 3.4 g/dL (3.9-5); BUN/Creatinine Ratio 13; Blood Urea Nitrogen 9 mg/dL (7-17); Calcium 9.1 mg/dL (8.4-10.2); Hemolysis Index 0
[2019-12-18 06:00] LABS: C-Reactive Protein 29.6 mg/dL (0.00-1.30)
[2019-12-18] MEDS ORDERED: AZITHROMYCIN 500 MG in SODIUM CHLORIDE 0.9% 250ML 250 ML IV ONE (06:03)
[2019-12-18] MEDS ORDERED: cefTRIAXone/NS 1 GM/50 ML 1 GM/50 ML BAG IV ONE ×2 (06:03→10:00)
[2019-12-18] MEDS: ALBUTEROL 8.5 GM INHALATION IH SCH ×4 (06:36→20:33)
[2019-12-18 06:45] LABS: Band Neutrophils # (Manual) 0.7 K/mm3; Basophils % (Manual) 0 % (0.0-1.8); Eosinophils % (Manual) 0 % (0.0-4.3); Total Cells Counted 100
[2019-12-18 06:46] LABS: Anisocytosis 1+; Large Platelets Few; Platelet Estimate Consistent w Auto
[2019-12-18] MEDS ORDERED: MORPHINE 2 MG/1 ML INJ IV ONE (07:30)
[2019-12-18] MEDS ORDERED: SODIUM CHLORIDE 0.9% 1000 ML 1,000 ML IV SCH (07:30)
[2019-12-18] MEDS ORDERED: ONDANSETRON 4 MG/2 ML INJ IV ONE (07:31)
--- NOTE | 2019-12-18 08:42 | Consultation ---
History of Present Illness - Reason for Consult Consult date: 12/18/19 PNA - rule out COVID 19 - History of Present Illness Patient is a A0 29-year-old -Niue[place] female who is approximately 33 weeks gestation and who has a history of asthma who presented to the ED with complaint of acute onset persistent nasal and sinus congestion, persistent dry cough with wheezing and shortness of breath, fever and chills and pleuritic chest wall pain for the last 2 days. Patient states that she ran out of her albuterol inhaler about 2 days ago and that since then her cough, pleuritic chest wall pain, shortness of breath and generalized weakness has worsened. Patient denies dizziness, syncope, chest pain, abdominal pain, vaginal bleeding, vaginal discharge, dysuria, urinary frequency and urgency, sore throat, nasal and sinus congestion, headache or change in vision or syncope and seizures. Patient was initially evaluated in the L&D and treated for pelvic cramps. Labs were drawn and reviewed, and was unremarkable. Patient was transferred to the ED for further evaluation of her shortness of breath and cough. Past Medical Hx - Past Medical History Hx Hypertension: No Hx Diabetes: No Hx Deep Vein Thrombosis: No Hx Renal Disease: No Hx Sickle Cell Disease: No Hx Seizures: No Hx Asthma: Yes Hx HIV: No - Surgical History Additional Surgical History: hernia repair - Social History Smoking Status: Never Smoker Substance Use Type: Marijuana - Social History Review of Systems Constitutional: chills, fever, malaise, weakness Eyes: denies: eye pain, eye discharge, vision change ENT: congestion. denies: ear pain, throat pain Respiratory: cough, shortness of breath, wheezing Cardiovascular: chest pain (pleuritic). denies: palpitations Endocrine: no symptoms reported Gastrointestinal: denies: abdominal pain, nausea, vomiting, diarrhea Genitourinary: denies: urgency, dysuria, frequency, discharge, abnormal menses, dyspareunia Musculoskeletal: denies: back pain, joint swelling, arthralgia Skin: denies: rash, lesions Neurological: denies: headache, weakness, paresthesias Psychiatric: anxiety. denies: depression Hematological/Lymphatic: denies: easy bleeding, easy bruising Medications and Allergies Allergies Allergy/AdvReac Type Severity Reaction Status Date / Time No Known Allergies Allergy Verified 12/22/18 15:12 Home Medications Medication Instructions Recorded Confirmed Last Taken Type traMADoL [Ultram] 50 mg PO Q6HR PRN #12 tablet 12/22/18 Unknown Rx Active Meds: Active Medications Albuterol (Proair) 2 puff IH Q4HRT PATRICIA Last Admin: 12/18/19 06:36 Dose: 2 puff Documented by: Sodium Chloride (Nacl 0.9% 1000 Ml) 1,000 mls @ 125 mls/hr IV DIRECT PATRICIA Sodium Chloride (Sodium Chloride Flush Syringe 10 Ml) 10 ml IV PRN PRN PRN Reason: LINE FLUSH Exam - Physical Exam Narrative exam: Physical exam per ER physician Limited physical exam due to COVID 19 pandemic and limited PPE Constitutional:alert in NAD Neck: limited due to lack of PPE Oral:limited due to lack of PPE Cardiovascular: limited due to lack of PPE Respiratory: Present: normal lung sounds bilaterally, wheezes (Moderate coarse wheezes diffusely), rales (Moderate inspiratory rales in left mid lobe and left lower lobe). Absent: respiratory distress, chest wall tenderness, accessory muscle use. GI: limited due to lack of PPE Musculoskeletal: limited due to lack of PPE Skin: No rash or abscess Hem/Lymphatic: limited due to lack of PPE Psych: no agitated Neurological: no agitated - Constitutional Vitals: Temp Pulse Resp BP Pulse Ox 100.3 F H 125 H 20 121/72 90 12/18/19 05:10 12/18/19 05:10 12/18/19 05:10 12/18/19 05:10 12/18/19 05:10 Results - Labs CBC & Chem 7: 12/18/19 05:22 12/18/19 05:22 Labs: Abnormal lab results 12/18/19 12/18/19 12/18/19 Range/Units 05:22 05:22 05:22 WBC 22.5 H (4.5-11.0) K/mm3 RBC 3.64 L (3.65-5.03) M/mm3 Hgb 9.9 L (10.1-14.3) gm/dl Hct 29.9 L (30.3-42.9) % MCH 27 L (28-32) pg Seg Neuts % (Manual) 93.0 H (40.0-70.0) % Lymphocytes % (Manual) 2.0 L (13.4-35.0) % Seg Neutrophils # Man 20.9 H (1.8-7.7) K/mm3 Lymphocytes # (Manual) 0.5 L (1.2-5.4) K/mm3 Sodium 132 L (137-145) mmol/L Potassium 3.4 L (3.6-5.0) mmol/L Chloride 95.8 L (98-107) mmol/L Carbon Dioxide 16 L (22-30) mmol/L Glucose 119 H (65-100) mg/dL Lactic Acid (0.7-2.0) mmol/L AST 42 H (5-40) units/L C-Reactive Protein 29.60 H (0.00-1.30) mg/dL Albumin 3.4 L (3.9-5) g/dL 12/18/19 Range/Units Unknown WBC (4.5-11.0) K/mm3 RBC (3.65-5.03) M/mm3 Hgb (10.1-14.3) gm/dl Hct (30.3-42.9) % MCH (28-32) pg Seg Neuts % (Manual) (40.0-70.0) % Lymphocytes % (Manual) (13.4-35.0) % Seg Neutrophils # Man (1.8-7.7) K/mm3 Lymphocytes # (Manual) (1.2-5.4) K/mm3 Sodium (137-145) mmol/L Potassium (3.6-5.0) mmol/L Chloride (98-107) mmol/L Carbon Dioxide (22-30) mmol/L Glucose (65-100) mg/dL Lactic Acid 3.60 H* (0.7-2.0) mmol/L AST (5-40) units/L C-Reactive Protein (0.00-1.30) mg/dL Albumin (3.9-5) g/dL - Imaging and Cardiology Chest x-ray: report reviewed (Left lobe pneumonia) Assessment and Plan Left lower lobe pneumonia -Due to pandemic we are going to rule out COVID19 -We will continue IV empiric antibiotics to target for bacterial pneumonia -Flu test has been negative -We will also obtain blood culture and sputum culture 33 weeks gestation -Plan of care per primary Sepsis due to pneumonia -Evident by leukocytosis, fever, elevated lactic acid and elevated CRP -Continue empiric antibiotics for now, rule out COVID 19 Asthma with acute exacerbation -Nebs schedule, supplemental O2 as needed Hyponatremia, likely due to dehydration, start IV fluid Hypokalemia, replete and monitor BMP Microcytic anemia -Could be anemia of -Continue to monitor H&H DVT prophylaxis, SCD
--- NOTE | 2019-12-18 09:58 | History and Physical Report ---
History of Present Illness Date of examination: 12/18/19 Date of admission: 12/18/19 07:37 Chief complaint: Shortness of breath,fevers, chills History of present illness: 29yo [id number] with acute onset shortness of breath, fevers, dry cough and pleuritic chest pain. She has no obstetric complains. She admits to [facility], no vaginal bleeding, contractions or loss of fluid. She is being managed per medicine for left lower lobe pneumonia. Patient seen in the ER under droplet precautions. PNC at [facility] Past History Past Medical History: asthma Past Surgical History: no surgical history Family/Genetic History: none Social history: no significant social history, - Obstetrical History : 2 Para: 0 Spontaneous Abortions: 1 Medications and Allergies Allergies Allergy/AdvReac Type Severity Reaction Status Date / Time No Known Allergies Allergy Verified 12/22/18 15:12 Home Medications Medication Instructions Recorded Confirmed Last Taken Type traMADoL [Ultram] 50 mg PO Q6HR PRN #12 tablet 12/22/18 12/18/19 Unknown Rx ALBUTEROL NEB's [Proventil 0.083% 12/18/19 Unknown History NEBS] Iron 12/18/19 Unknown History Valtrex 12/18/19 Unknown History Active Meds: Active Medications Albuterol (Proair) 2 puff IH Q4HRT PATRICIA Last Admin: 12/18/19 06:36 Dose: 2 puff Documented by: Sodium Chloride (Nacl 0.9% 1000 Ml) 1,000 mls @ 125 mls/hr IV DIRECT PATRICIA Azithromycin 500 mg/ Sodium (Chloride) 250 mls @ 250 mls/hr IV Q24HR PATRICIA; Protocol Ceftriaxone Sodium (Rocephin/Ns 2 Gm/100 Ml) 2 gm in 100 mls @ 200 mls/hr IV Q24HR PATRICIA; Protocol Ceftriaxone Sodium (Rocephin/Ns 1 Gm/50 Ml) 1 gm in 50 mls @ 100 mls/hr IV ONCE ONE Stop: 12/18/19 10:29 Sodium Chloride (Sodium Chloride Flush Syringe 10 Ml) 10 ml IV PRN PRN PRN Reason: LINE FLUSH - Vital Signs Vital signs: Vital Signs Pulse Pulse Ox 115 H 95 12/18/19 00:27 12/18/19 00:27 Temp Pulse Resp BP Pulse Ox 100.3 F H 125 H 20 121/72 90 12/18/19 05:10 12/18/19 05:10 12/18/19 05:10 12/18/19 05:10 12/18/19 05:10 - Physical Exam Cardiovascular: Regular rate Lungs: Positive: Other (see IM admission consult) Abdomen: Positive: normal appearance, soft Extremities: Positive: normal Deep Tendon Reflex Grade: Normal +2 - Obstetrical FHR: category 1 Uterine Contraction Pattern: Absent (reactive NST in OB triage this morning) Results Result Diagrams: 12/18/19 05:22 12/18/19 05:22 Abnormal lab results 12/18/19 12/18/19 12/18/19 Range/Units 05:22 05:22 05:22 WBC 22.5 H (4.5-11.0) K/mm3 RBC 3.64 L (3.65-5.03) M/mm3 Hgb 9.9 L (10.1-14.3) gm/dl Hct 29.9 L (30.3-42.9) % MCH 27 L (28-32) pg Seg Neuts % (Manual) 93.0 H (40.0-70.0) % Lymphocytes % (Manual) 2.0 L (13.4-35.0) % Seg Neutrophils # Man 20.9 H (1.8-7.7) K/mm3 Lymphocytes # (Manual) 0.5 L (1.2-5.4) K/mm3 Sodium 132 L (137-145) mmol/L Potassium 3.4 L (3.6-5.0) mmol/L Chloride 95.8 L (98-107) mmol/L Carbon Dioxide 16 L (22-30) mmol/L Glucose 119 H (65-100) mg/dL Lactic Acid (0.7-2.0) mmol/L AST 42 H (5-40) units/L C-Reactive Protein 29.60 H (0.00-1.30) mg/dL Albumin 3.4 L (3.9-5) g/dL 12/18/19 Range/Units Unknown WBC (4.5-11.0) K/mm3 RBC (3.65-5.03) M/mm3 Hgb (10.1-14.3) gm/dl Hct (30.3-42.9) % MCH (28-32) pg Seg Neuts % (Manual) (40.0-70.0) % Lymphocytes % (Manual) (13.4-35.0) % Seg Neutrophils # Man (1.8-7.7) K/mm3 Lymphocytes # (Manual) (1.2-5.4) K/mm3 Sodium (137-145) mmol/L Potassium (3.6-5.0) mmol/L Chloride (98-107) mmol/L Carbon Dioxide (22-30) mmol/L Glucose (65-100) mg/dL Lactic Acid 3.60 H* (0.7-2.0) mmol/L AST (5-40) units/L C-Reactive Protein (0.00-1.30) mg/dL Albumin (3.9-5) g/dL All other labs normal. Assessment and Plan IUP At 33 weeks Left lower lobe pneumonia R/out COVID 19 Plan: NST Q shift appreciate medicine consult, will follow recommendations status reassuring delivery for acute maternal/ indication [place]
[2019-12-18] MEDS ORDERED: cefTRIAXone/NS 1 GM/50 ML 1 GM/50 ML BAG IV SCH (10:00)
[2019-12-18] MEDS ORDERED: AZITHROMYCIN 250 MG TAB PO SCH (10:00)
[2019-12-18] MEDS ORDERED: ALBUTEROL 2.5 MG/3 ML NEBU IH PRN (13:52)
--- NOTE | 2019-12-18 14:17 | Consultation ---
History of Present Illness - Reason for Consult Consult date: 12/18/19 Pneumonia r/o COVID Requesting physician: ROCKY SOOD - History of Present Illness 29 years old female with history of asthma, currently 33 weeks , admitted on 12/18/2019 due to 4-day history of dry cough, nasal congestion, shortness of breath and left-sided pleuritic chest pain. Patient also not noted fever and chills. Patient was seen by her OB doctor at [place] last week was found okay. She was using her inhaler. She lives in [place] with her boyfriend. She does not work. On admission, temperature 100, HR 115, initial WBC 22.5, hemoglobin 9.9. Lactate 3.6. AST 42. CRP 29. Ferritin 80, LDH 141. Procalcitonin 1.1. Urinalysis negative. Influenza antigen negative. Blood culture 12/18/2019 no growth. Chest x-ray showed left middle lobe consolidation. Urinary drug screen positive for marijuana. Review of Systems: positive in bold print General: + fever, +chills, +malaise Cutaneous: rash, pruritus Head: headaches or injury Eyes: changes in vision, eye pain, double vision Ears: ear pain, ear discharge, ringing or hearing loss Nose: nose bleeding, stuffiness Mouth & throat: bleeding gums, horseness, no dental problems, or swollen glands Neck: no pain, node enlargement/lumps, tyroid enlargement or tenderness Respiratory: +SOB, +cough, +CARREON, wheezing, sputum, hemoptysis, pleuritic chest pain Cardiovascular: chest pain, leg edema, cyanosis, CARREON, orthopnea Musculoskeletal: edema Gastrointestinal: nausea, vomiting, hematemesis, diarrhea, constipation, melena, bright red blood in stools, fecal incontinence, jaundice Genitourinary/Reproductive: frequent urination, dysuria, hematuria, incontinence Neurogical: seizures, headaches, weakness, paresthesias, loss of speech or vision; memory loss, vertigo, tremors, numbness Psychiatric: stable mood; excessive anxiety, sadness or moodiness Past History Social history: no significant social history, Medications and Allergies Allergies Allergy/AdvReac Type Severity Reaction Status Date / Time No Known Allergies Allergy Verified 12/22/18 15:12 Home Medications Medication Instructions Recorded Confirmed Last Taken Type ALBUTEROL NEB's [Proventil 0.083% 12/18/19 Unknown History NEBS] Iron 12/18/19 Unknown History Valtrex 12/18/19 Unknown History Active Meds: Active Medications Albuterol (Proair) 2 puff IH Q4HRT PATRICIA Last Admin: 12/18/19 12:58 Dose: 2 puff Documented by: Albuterol (Proventil) 2.5 mg IH Q4HR PRN PRN Reason: Shortness Of Breath Guaifenesin (Mucinex Er) 600 mg PO BID PATRICIA Sodium Chloride (Nacl 0.9% 1000 Ml) 1,000 mls @ 125 mls/hr IV DIRECT PATRICAI Azithromycin 500 mg/ Sodium (Chloride) 250 mls @ 250 mls/hr IV Q24HR PATRICIA; Protocol Ceftriaxone Sodium (Rocephin/Ns 2 Gm/100 Ml) 2 gm in 100 mls @ 200 mls/hr IV Q24HR PATRICIA; Protocol Sodium Chloride (Sodium Chloride Flush Syringe 10 Ml) 10 ml IV PRN PRN PRN Reason: LINE FLUSH Physical Examination - Physical Exam Narrative exam: Exam performed in conjunction with nursing staff due to lack of PPE General appearance: Alert in NAD Eyes: limited due to lack of PPE HENT: Atraumatic; oropharynx limited due to lack of PPE Lungs: left crackles CV: RRR Abdomen: limited uterine Extremities: limited due to lack of PPE Skin: No rash. Psych: Appropriate affect, alert and oriented to person, place and time. Neuro: alert and oriented x 3. Moving all extermities - Constitutional Vitals: Vital Signs Temp Pulse Resp BP Pulse Ox 100.3 F H 125 H 20 121/72 90 12/18/19 05:10 12/18/19 05:10 12/18/19 05:10 12/18/19 05:10 12/18/19 05:10 Temperature -Last 24 Hours Temperature 100.3 F Temperature 100.1 F Temperature 100.0 F Temperature 98.4 F Results - Labs CBC & Chem 7: 12/18/19 05:22 12/18/19 05:22 Labs: Abnormal lab results 12/18/19 12/18/19 12/18/19 Range/Units 05:22 05:22 05:22 WBC 22.5 H (4.5-11.0) K/mm3 RBC 3.64 L (3.65-5.03) M/mm3 Hgb 9.9 L (10.1-14.3) gm/dl Hct 29.9 L (30.3-42.9) % MCH 27 L (28-32) pg Seg Neuts % (Manual) 93.0 H (40.0-70.0) % Lymphocytes % (Manual) 2.0 L (13.4-35.0) % Seg Neutrophils # Man 20.9 H (1.8-7.7) K/mm3 Lymphocytes # (Manual) 0.5 L (1.2-5.4) K/mm3 Sodium 132 L (137-145) mmol/L Potassium 3.4 L (3.6-5.0) mmol/L Chloride 95.8 L (98-107) mmol/L Carbon Dioxide 16 L (22-30) mmol/L Glucose 119 H (65-100) mg/dL Lactic Acid (0.7-2.0) mmol/L AST 42 H (5-40) units/L C-Reactive Protein 29.60 H (0.00-1.30) mg/dL Albumin 3.4 L (3.9-5) g/dL 12/18/19 Range/Units Unknown WBC (4.5-11.0) K/mm3 RBC (3.65-5.03) M/mm3 Hgb (10.1-14.3) gm/dl Hct (30.3-42.9) % MCH (28-32) pg Seg Neuts % (Manual) (40.0-70.0) % Lymphocytes % (Manual) (13.4-35.0) % Seg Neutrophils # Man (1.8-7.7) K/mm3 Lymphocytes # (Manual) (1.2-5.4) K/mm3 Sodium (137-145) mmol/L Potassium (3.6-5.0) mmol/L Chloride (98-107) mmol/L Carbon Dioxide (22-30) mmol/L Glucose (65-100) mg/dL Lactic Acid 3.60 H* (0.7-2.0) mmol/L AST (5-40) units/L C-Reactive Protein (0.00-1.30) mg/dL Albumin (3.9-5) g/dL Assessment and Plan Cultures: Blood culture 12/18/2019 no growth today Assessment: 29 years old female with history of asthma, currently 33 weeks , admitted on 12/18/2019 due to 4-day history of dry cough, nasal con gestion, shortness of breath and left-sided pleuritic chest pain, fever and chills. She lives in [place] with her boyfriend: #Severe sepsis: Present on admission with fever, tachycardia, leukocytosis, elevated lactate and acute hypoxemia; likely due to left middle lobepneumonia #Left middle lobe pneumonia: high suspicion for bacterial pneumonia, however cannot rule out severe COVID pneumonia. COVID test pending. Procalcitonin elevated at 1.1 leukocytosis at 22,000 which indicates more bacterial pneumonia than viral pneumonia. Inflamatory markers for severe cough with normal except CRP-ferritin 80, LDH 141, CRP 29. Influenza antigen negative. #Acute hypoxemia: on NC O2 #Mildly elevated LFTs: Likely from sepsis # 33 weeks #Marijuana positive Recommendations: Follow-up blood culture OB service on board Continue COVID isolation precautions per [facility] protocol Follow-up COVID testing Check serial Ferritin, LDH, D-Dimer, CRP every 48 hour Continue ceftriaxone 2 gm IV q day and azithromycin 500 mg IV q day to cover CAP Obtain strep pneumoniae urine antigen and Legionella urine antigen Daily EKG - QT monitoring - stop plaqenil if QT interval >500 Pharmacy alerted us if patient test positive for COVID, will be included in the Remdesivir trial. Will follow Bobbi West MD Infectious Diseases [facility] M [phone] O [phone]
[2019-12-18] MEDS: guaiFENesin ER 600 MG TAB PO SCH ×2 (15:59→21:00)
[2019-12-18 18:58] VITALS: BP 120/77
[2019-12-18] MEDS ORDERED: ACETAMINOPHEN 325 MG TAB PO PRN (22:21)
--- NOTE | 2019-12-19 04:36 | Event Note ---
Date: 12/19/19 Patient left MIRACLE Olson MD
[2019-12-19] MEDS ORDERED: cefTRIAXone/NS 2 GM/100 ML 2 GM/100 ML BAG IV SCH (10:00)
[2019-12-19] MEDS ORDERED: AZITHROMYCIN 500 MG in SODIUM CHLORIDE 0.9% 250ML 250 ML IV SCH (10:00)
== END 2019-12-18 23:00 | disposition left against medical advice (07) | DRG 781 ==
LOC: TRG 02:59 → ED 02:59 → OBSVTOIN 07:37 → 3A 07:37 → OBSVTOIN 13:50 → INTOOBSV 13:50
PROVIDERS: ADMIT Obstetrics & Gynecology; ATTEND Obstetrics & Gynecology
DX: O99.513 Diseases of the respiratory system complicating pregnancy, third trimester (principal); O98.813 Other maternal infectious and parasitic diseases complicating pregnancy, third trimester; A41.9 Sepsis, unspecified organism; R09.02 Hypoxemia; J45.41 Moderate persistent asthma with (acute) exacerbation; E87.1 Hypo-osmolality and hyponatremia; E87.6 Hypokalemia; J45.909 Unspecified asthma, uncomplicated; R65.20 Severe sepsis without septic shock; J18.9 Pneumonia, unspecified organism; O99.323 Drug use complicating pregnancy, third trimester; F12.90 Cannabis use, unspecified, uncomplicated; O99.283 Endocrine, nutritional and metabolic diseases complicating pregnancy, third trimester; O99.013 Anemia complicating pregnancy, third trimester; Z3A.33 33 weeks gestation of pregnancy; Z98.890 Other specified postprocedural states; Z79.51 Long term (current) use of inhaled steroids; Z79.899 Other long term (current) drug therapy
CPT/HCPCS: 36415; 71045; 80053; 80307; 81001; 82140; 82728; 82731; 82805; 83615; 84145; 85007; 85025; 86140; 87040; 87400; 94640; 96365; 96367; 96375; 99291; G0378; 87502; J0456; J0690; J0696; J2930; J3105; J7030; J7050; J7120

== ENCOUNTER 2020-10-22 01:12 | Emergency (ER) | payer MEDICAID ==
[2020-10-22 02:04] VITALS: BP 106/73
--- NOTE | 2020-10-22 02:04 | Emergency Department Report ---
ED HPI - General Chief complaint: Vaginal Bleeding Stated complaint: BLEEDING//WEEKS UNKNOWN Time Seen by Provider: 10/22/20 01:57 Source: patient Mode of arrival: Ambulatory Limitations: No Limitations - History of Present Illness Initial comments: This is a 30-year-old female nontoxic, well nourished in appearance, no acute signs of distress presents to the ED with c/o of vaginal bleeding and pelvic pain x1 day. Patient stated this morning she had vaginal bleeding with large clot and patient stated believes she had a miscarriage. Denies any abdominal pain. Patient denies any vaginal discharge or foul odor. Patient denies any nausea, vomiting, chest pain, shortness of breathe, fever, chills, headache, stiff neck, numbness, tingling. Patient denies any urinary symptoms. Patient denies any allergies or PMH. MD Complaint: vaginal bleeding -: days(s) Location: pelvis Radiation: none Severity: mild Severity scale (0 -10): 3 Quality: cramping Consistency: constant Improves with: none Worsens with: none Associated symptoms: vaginal bleeding. denies: nausea/vomiting, vaginal discharge, abdominal pain, dysuria, headache, vision changes, malaise, dysparuenia, rash, seizure, shortness of breath, syncope, weakness Vaginal bleeding: light :: Yes Pre-krystle care: none - Related Data Home Medications Medication Instructions Recorded Confirmed Last Taken ALBUTEROL NEB's [Proventil 0.083% 12/18/19 Unknown NEBS] Iron 12/18/19 Unknown Valtrex 12/18/19 Unknown Allergies Allergy/AdvReac Type Severity Reaction Status Date / Time No Known Allergies Allergy Verified 12/22/18 15:12 ED Review of Systems ROS: Stated complaint: BLEEDING//WEEKS UNKNOWN Other details as noted in HPI Comment: All other systems reviewed and negative Constitutional: denies: chills, fever Eyes: denies: eye pain, eye discharge, vision change ENT: denies: ear pain, throat pain Respiratory: denies: cough, shortness of breath, wheezing Cardiovascular: denies: chest pain, palpitations Endocrine: no symptoms reported Gastrointestinal: denies: abdominal pain, nausea, diarrhea Genitourinary: abnormal menses. denies: urgency, dysuria, discharge Musculoskeletal: denies: back pain, joint swelling, arthralgia Skin: denies: rash, lesions Neurological: denies: headache, weakness, paresthesias Psychiatric: denies: anxiety, depression Hematological/Lymphatic: denies: easy bleeding, easy bruising ED Past Medical Hx - Past Medical History Previous Medical History?: Yes Hx Hypertension: No Hx Diabetes: No Hx Deep Vein Thrombosis: No Hx Renal Disease: No Hx Sickle Cell Disease: No Hx Seizures: No Hx Asthma: Yes Hx HIV: No - Surgical History Past Surgical History?: Yes Additional Surgical History: hernia repair - Social History Smoking Status: Never Smoker Substance Use Type: Marijuana - Medications Home Medications: Home Medications Medication Instructions Recorded Confirmed Last Taken Type ALBUTEROL NEB's [Proventil 0.083% 12/18/19 Unknown History NEBS] Iron 12/18/19 Unknown History Valtrex 12/18/19 Unknown History ED Physical Exam - General Limitations: No Limitations General appearance: alert, in no apparent distress - Head Head exam: Present: atraumatic, normocephalic - Eye Eye exam: Present: normal appearance - Neck Neck exam: Present: normal inspection, full ROM - Respiratory Respiratory exam: Absent: respiratory distress - Cardiovascular Cardiovascular Exam: Present: regular rate - GI/Abdominal GI/Abdominal exam: Present: soft, normal bowel sounds. Absent: distended, tenderness, guarding, rebound, rigid, diminished bowel sounds - Extremities Exam Extremities exam: Present: full ROM - Back Exam Back exam: Present: normal inspection, full ROM - Neurological Exam Neurological exam: Present: alert, oriented X3, normal gait - Psychiatric Psychiatric exam: Present: normal affect, normal mood - Skin Skin exam: Present: warm, dry, intact, normal color. Absent: rash ED Course Vital Signs 10/22/20 02:02 Temperature 98.7 F Pulse Rate 91 H Respiratory 17 Rate Blood Pressure 106/73 O2 Sat by Pulse 96 Oximetry - Reevaluation(s) Reevaluation #1: 10/22/20 02:03 Patient is speaking in full sentences with no signs of distress noted. ED Medical Decision Making - Lab Data Result diagrams: 10/22/20 02:04 Lab Results 10/22/20 10/22/20 10/22/20 Range/Units 02:04 02:04 02:04 WBC 6.8 (4.5-11.0) K/mm3 RBC 4.25 (3.65-5.03) M/mm3 Hgb 11.8 (10.1-14.3) gm/dl Hct 35.6 (30.3-42.9) % MCV 84 (79-97) fl MCH 28 (28-32) pg MCHC 33 (30-34) % RDW 16.0 H (13.2-15.2) % Plt Count 237 (140-440) K/mm3 Lymph % (Auto) 31.5 (13.4-35.0) % [place] % (Auto) 6.4 (0.0-7.3) % Eos % (Auto) 2.6 (0.0-4.3) % Baso % (Auto) 0.4 (0.0-1.8) % Lymph # (Auto) 2.1 (1.2-5.4) K/mm3 [place] # (Auto) 0.4 (0.0-0.8) K/mm3 Eos # (Auto) 0.2 (0.0-0.4) K/mm3 Baso # (Auto) 0.0 (0.0-0.1) K/mm3 Seg Neutrophils % 59.1 (40.0-70.0) % Seg Neutrophils # 4.0 (1.8-7.7) K/mm3 HCG, Quant 02637 H (0-4) mIU/mL Urine Color (Yellow) Urine Turbidity (Clear) Urine pH (5.0-7.0) Urine Protein (Negative) mg/dL Urine Glucose (UA) (Negative) mg/dL Urine Ketones (Negative) mg/dL Urine Blood (Negative) Urine Nitrite (Negative) Urine Bilirubin (Negative) Urine Urobilinogen (<2.0) mg/dL Ur Leukocyte Esterase (Negative) Urine WBC (Auto) (0.0-6.0) /HPF Urine RBC (Auto) (0.0-6.0) /HPF U Epithel Cells (Auto) (0-13.0) /HPF Urine Mucus /HPF Blood Type B POSITIVE 10/22/20 Range/Units Unknown WBC (4.5-11.0) K/mm3 RBC (3.65-5.03) M/mm3 Hgb (10.1-14.3) gm/dl Hct (30.3-42.9) % MCV (79-97) fl MCH (28-32) pg MCHC (30-34) % RDW (13.2-15.2) % Plt Count (140-440) K/mm3 Lymph % (Auto) (13.4-35.0) % [place] % (Auto) (0.0-7.3) % Eos % (Auto) (0.0-4.3) % Baso % (Auto) (0.0-1.8) % Lymph # (Auto) (1.2-5.4) K/mm3 [place] # (Auto) (0.0-0.8) K/mm3 Eos # (Auto) (0.0-0.4) K/mm3 Baso # (Auto) (0.0-0.1) K/mm3 Seg Neutrophils % (40.0-70.0) % Seg Neutrophils # (1.8-7.7) K/mm3 HCG, Quant (0-4) mIU/mL Urine Color Yellow (Yellow) Urine Turbidity Clear (Clear) Urine pH 5.0 (5.0-7.0) Urine Protein <15 mg/dl (Negative) mg/dL Urine Glucose (UA) Neg (Negative) mg/dL Urine Ketones Neg (Negative) mg/dL Urine Blood Mod (Negative) Urine Nitrite Neg (Negative) Urine Bilirubin Neg (Negative) Urine Urobilinogen 2.0 (<2.0) mg/dL Ur Leukocyte Esterase Neg (Negative) Urine WBC (Auto) 2.0 (0.0-6.0) /HPF Urine RBC (Auto) 10.0 (0.0-6.0) /HPF U Epithel Cells (Auto) 1.0 (0-13.0) /HPF Urine Mucus Few /HPF Blood Type - Radiology Data Referring Physician: JANET RUSS Patient Name: ALISON MOMIN Date of : 1982-11-08 Sex: Female Report Date: 2020-10-22 Report Status: Finalized [facility] [address] [place] [address] XRay Report Signed Patient: ALISON MOMIN MR#: [id number] : 11/08/1982 Acct:[id number] Age/Sex: 37 / F ADM Date: 10/22/20 Loc: ED Attending Dr: Ordering Physician: JANET RUSS NP Date of Service: 10/22/20 Procedure(s): XR chest 1V ap Accession Number(s): [id number] cc: JANET RUSS NP Fluoro Time In Minutes: CHEST 1 VIEW 10/22/2020 2:38 AM INDICATION / CLINICAL INFORMATION: SOB/wheezing. Asthma attack. COMPARISON: 12/17/17 FINDINGS: SUPPORT DEVICES: None. HEART / MEDIASTINUM: No significant abnormality. LUNGS / PLEURA: No sig nificant pulmonary or pleural abnormality. No pneumothorax. ADDITIONAL FINDINGS: Incidental note of moderate sized right cervical rib. IMPRESSION: 1. No acute findings. No change. Signer Name: Edil Ceja MD Signed: 10/22/2020 3:47 AM Workstation Name: [id number] Transcribed By: DT Dictated By: Stan Ceja MD Electronically Authenticated By: Stan Ceja MD Signed Date/Time: 10/22/20346 DD/ 5 TD/TT: - Medical Decision Making This is a 30-year-old female presents with threatened miscarriage. Due to the the nature and symptoms of vaginal bleeding and large clots, I believe patient had a spontaneous miscarriage but patient would need to be reevaluated with hCG levels in 2 days. Patient is stable and was examined by me. Normal abdominal exam. US OB obtained and dictated by the radiologist. Ua obtained. Quantative s iron test obtained. Patient notified of the US report with no questions noted by the patient. Patient was instructed f/u with [facility] in 2 days. RH factor positive. Labs within normal limits. Patient was given strict precautions and education on ectopic . At time of discharge, the patient does not seem toxic or ill in appearance. No acute signs of distress noted. Patient agrees to discharge treatment plan of care. No further questions noted by the patient. Critical care attestation.: If time is entered above; I have spent that time in minutes in the direct care of this critically ill patient, excluding procedure time. ED Disposition Clinical Impression: Threatened miscarriage Disposition: DC-01 TO HOME OR SELFCARE Is pt being admited?: No Does the pt Need Aspirin: No Condition: Stable Instructions: Threatened Miscarriage Additional Instructions: Follow-up with a [facility] doctor in 2 days for a repeat quantitative test and possible ultrasound or if symptoms worsen and continue return to emergency room as soon as possible. Referrals: ABBEY WILEY MD [Primary Care Provider] - 3-5 Days [facility] [Referring] - 3-5 Days [facility] [Provider Group] - 3-5 Days [facility] [Provider Group] - 3-5 Days Forms: Work/School Release Form(ED) Time of Disposition: 04:51
[2020-10-22 02:36] LABS: Basophils % (Auto) 0.4 % (0.0-1.8); Eosinophils # (Auto) 0.2 K/mm3 (0.0-0.4); Eosinophils % (Auto) 2.6 % (0.0-4.3); Hematocrit 35.6 % (30.3-42.9); Hemoglobin 11.8 gm/dl (10.1-14.3); Lymphocytes # (Auto) 2.1 K/mm3 (1.2-5.4); Lymphocytes % (Auto) 31.5 % (13.4-35.0); Mean Corpuscular HGB Conc 33 % (30-34); Mean Corpuscular Volume 84 fl (79-97); Monocytes # (Auto) 0.4 K/mm3 (0.0-0.8); Monocytes % (Auto) 6.4 % (0.0-7.3); Platelet Count 237 K/mm3 (140-440); Red Blood Count 4.25 M/mm3 (3.65-5.03)
[2020-10-22 03:49] LABS: Bilirubin,Urine NEG (Negative); Blood,Urine MOD (Negative); Color,Urine Yellow (Yellow); Mucus,Urine FEW /HPF; Protein,Urine <15 mg/dL mg/dL (Negative)
--- NOTE | 2020-10-22 04:29 | Ultrasound Report ---
ULTRASOUND OBSTETRIC INDICATION / CLINICAL INFORMATION: vaginal bleeding and pelvic pain. Serum hCG level = 11,286. Clinical Gestational Age (GA) in weeks, days: 18, 5 TECHNIQUE: Transabdominal. COMPARISON: None available. FINDINGS: GESTATIONAL SAC: No intrauterine gestational sac. YOLK SAC: None visualized. EMBRYO/FETUS: None visualized. Heterogeneous, thickened endometrium with endometrial stripe measuring 1.9 cm in thickness. ADNEXA: No significant abnormality. No adnexal mass or fluid collection. FREE FLUID: None. ADDITIONAL FINDINGS: None. IMPRESSION: 1. No intrauterine visualized. No adnexal mass or fluid collection. Signer Name: Edil Ceja MD Signed: 10/22/2020 4:25 AM Workstation Name: [id number]
== END 2020-10-22 05:30 | disposition home or self-care (01) ==
LOC: ED 01:12
DX: O20.0 Threatened abortion (principal); O26.891 Other specified pregnancy related conditions, first trimester; O99.511 Diseases of the respiratory system complicating pregnancy, first trimester; F12.90 Cannabis use, unspecified, uncomplicated; Z98.890 Other specified postprocedural states; Z79.899 Other long term (current) drug therapy; Z3A.01 Less than 8 weeks gestation of pregnancy
CPT/HCPCS: 36415; 76801; 81001; 84702; 85025; 86900; 86901

== ENCOUNTER 2022-03-27 02:30 | Emergency (ER) | payer MEDICAID ==
[2022-03-27] MEDS ORDERED: ALBUTEROL 2.5 MG/3 ML NEBU IH ONE ×6 (03:51→06:52)
[2022-03-27] MEDS ORDERED: methylPREDNISolone Sod Succinate 125 MG/2 ML INJ IV ONE (04:02)
[2022-03-27] MEDS ORDERED: IPRATROPIUM 0.02% NEBU 2.5 ML IH ONE ×3 (04:14→06:52)
[2022-03-27] MEDS ORDERED: predniSONE 20 MG TAB PO ONE (04:40)
--- NOTE | 2022-03-27 04:50 | XRay Report ---
CHEST 2 VIEWS INDICATION: Asthma. COMPARISON: 12/18/2019 FINDINGS: Support devices: None. Heart: Within normal limits. Lungs/Pleura: No acute air space or interstitial disease. No significant pleural effusion. IMPRESSION: No acute findings. Signer Name: Eduardo Beasley MD Signed: 03/27/2022 4:46 AM Workstation Name: [id number]
[2022-03-27] MEDS ORDERED: IPRATROPIUM/ALBUTEROL SULFATE 3 ML AMPUL.NEB IH ONE (06:37)
--- NOTE | 2022-03-27 06:40 | Emergency Department Report ---
ED Shortness of Breath HPI - General Chief Complaint: Dyspnea/Respdistress Stated Complaint: DELANEY Time Seen by Provider: 03/27/22 04:22 Source: patient Mode of arrival: Ambulatory Limitations: No Limitations - History of Present Illness Initial Comments: Patient is a 32-year-old female with history of asthma presenting the ED with complaint of shortness of breath and wheezing for the past several days despite taking multiple breathing treatments at home. She denies any fever or chills. - Related Data Home Medications Medication Instructions Recorded Confirmed Last Taken ALBUTEROL NEB's [Proventil 0.083% 12/18/19 Unknown NEBS] Iron 12/18/19 Unknown Valtrex 12/18/19 Unknown Previous Rx's Medication Instructions Recorded Last Taken Type Albuterol Mdi (or & Nicu Only) 2 puff IH QID PRN #8.5 gram 03/27/22 Unknown Rx [ProAir HFA Inhaler] Albuterol Sulfate [Albuterol 0.63% 0.63 mg IH TID PRN #60 ml 03/27/22 Unknown Rx NEBS] predniSONE [Deltasone] 40 mg PO QDAY #10 tab 03/27/22 Unknown Rx Allergies Allergy/AdvReac Type Severity Reaction Status Date / Time No Known Allergies Allergy Verified 12/22/18 15:12 ED Review of Systems ROS: Stated complaint: DELANEY Other details as noted in HPI Constitutional: denies: chills, fever Respiratory: shortness of breath, wheezing Cardiovascular: as per HPI Gastrointestinal: denies: abdominal pain, nausea, diarrhea Genitourinary: denies: urgency, dysuria, discharge Musculoskeletal: denies: back pain, joint swelling, arthralgia Skin: denies: rash, lesions Neurological: denies: headache, weakness, paresthesias Psychiatric: denies: anxiety, depression ED Past Medical Hx - Past Medical History Previous Medical History?: Yes Hx Hypertension: No Hx Diabetes: No Hx Deep Vein Thrombosis: No Hx Renal Disease: No Hx Sickle Cell Disease: No Hx Seizures: No Hx Asthma: Yes Hx HIV: No - Surgical History Past Surgical History?: Yes Additional Surgical History: hernia repair - Social History Smoking Status: Current Every Day Smoker Substance Use Type: None - Medications Home Medications: Home Medications Medication Instructions Recorded Confirmed Last Taken Type ALBUTEROL NEB's [Proventil 0.083% 12/18/19 Unknown History NEBS] Iron 12/18/19 Unknown History Valtrex 12/18/19 Unknown History Albuterol Mdi (or & Nicu Only) 2 puff IH QID PRN #8.5 gram 03/27/22 Unknown Rx [ProAir HFA Inhaler] Albuterol Sulfate [Albuterol 0.63% 0.63 mg IH TID PRN #60 ml 03/27/22 Unknown Rx NEBS] predniSONE [Deltasone] 40 mg PO QDAY #10 tab 03/27/22 Unknown Rx ED Physical Exam - General Limitations: No Limitations General appearance: alert, in no apparent distress - Head Head exam: Present: atraumatic, normocephalic - Respiratory Respiratory exam: Present: wheezes (Bilateral end expiratory wheezing), prolonged expiratory. Absent: accessory muscle use - Cardiovascular Cardiovascular Exam: Present: regular rate, normal rhythm, normal heart sounds - GI/Abdominal GI/Abdominal exam: Present: soft. Absent: distended, tenderness - Extremities Exam Extremities exam: Present: normal inspection. Absent: pedal edema - Neurological Exam Neurological exam: Present: alert, oriented X3, CN II-XII intact - Psychiatric Psychiatric exam: Present: normal affect, normal mood - Skin Skin exam: Present: warm, dry, intact, normal color ED Course Vital Signs 03/27/22 03/27/22 03/27/22 02:30 04:24 05:17 Temperature 97.5 F L 97.9 F Pulse Rate 91 H 74 Pulse Rate [ 90 Bilateral] Respiratory 18 20 Rate Respiratory 18 Rate [Bilateral ] Blood Pressure 155/109 Blood Pressure 142/102 [Left] O2 Sat by Pulse 99 100 Oximetry 03/27/22 03/27/22 06:54 09:00 Temperature Pulse Rate 109 H Pulse Rate [ 104 H Bilateral] Respiratory 19 Rate Respiratory 18 Rate [Bilateral ] Blood Pressure Blood Pressure 130/82 [Left] O2 Sat by Pulse 98 Oximetry ED Medical Decision Making - Medical Decision Making Chest x-ray unremarkable. Patient given additional breathing treatments. On reassessment patient is eating food tray and does not appear to be in any acute respiratory distress. Will discharge home with Rx for nebulizer solution and MDI along with 5-day course of prednisone. Critical care attestation.: If time is entered above; I have spent that time in minutes in the direct care of this critically ill patient, excluding procedure time. ED Disposition Clinical Impression: Asthma with acute exacerbation in adult Disposition: 01 HOME / SELF CARE / HOMELESS Is pt being admited?: No Condition: Stable Instructions: Asthma, Adult Additional Instructions: Please follow-up with your regular doctor as needed. You may return if your symptoms worsen. Time of Disposition: 09:37
[2022-03-27 10:44] VITALS: BP 130/82
== END 2022-03-27 10:45 | disposition home or self-care (01) ==
LOC: ED 02:30
DX: J45.901 Unspecified asthma with (acute) exacerbation (principal); F17.200 Nicotine dependence, unspecified, uncomplicated
CPT/HCPCS: 71046; 82962; 94644; 96374; 99284; J2930